=== PATIENT | male | born 1980 | race Two or more races ===

== ENCOUNTER 2020-11-15 16:03 | Emergency (ER) | payer OTHER ==
[~2020-11-15] VITALS: Ht 182.9 cm; Wt 88.5 kg
--- NOTE | 2020-11-15 16:29 | NUR ---
[place] AND [employer] FROM THE STREET TO ER BED 15. AAOX4. NOT IN RESP DISTRESS. BROUGHT IN SUICIDAL IDEATION. PER PT, VOICES ARE TELLING HIM TO HURT HIMSELF AND OTHERS. PT WANT VOLUNTARY BE ADMITTED. PT GOWN, BELONGINGS PLACED IN LOCKER LOCATED IN UTILITY ROOM. SITTER AT BEDSIDE. MD AT BEDSIDE FOR EVAL. ORDERS RECEIVED, NOTED AND CARRIED OUT.
[2020-11-15] MEDS ORDERED: OLANZAPINE 10 MG VIAL IM ONE ×2 (16:30→16:35)
[2020-11-15 16:51] LABS: BASOPHILS # (AUTO) 0.1 /CMM (0.0-0.2); BASOPHILS % (AUTO) 0.8 % (0.0-2.0); EOSINOPHILS % (AUTO) 7.2 % (0.0-6.0); HEMATOCRIT 46 % (39-51); HEMOGLOBIN 15.1 g/dL (13.5-17.5); LYMPHOCYTES % (AUTO) 24.3 % (20.0-44.0); MEAN CORPUSCULAR HGB CONC 33 g/dl (31.0-36.0); MEAN CORPUSCULAR VOLUME 92 fL (80-96); MONOCYTES # (AUTO) 1.1 /CMM (0.1-1.30); MONOCYTES % (AUTO) 12.8 % (2.0-12.0); NEUTROPHILS # (AUTO) 4.6 /CMM (1.8-8.9); NEUTROPHILS % (AUTO) 54.9 % (43.0-81.0); PLATELET COUNT (AUTO) 290 /CMM (150-450); RED BLOOD CELL COUNT(AUTO) 4.98 MIL/uL (4.5-6.0); WHITE BLOOD COUNT (AUTO) 8.3 K/uL (4.3-11.0)
[2020-11-15 16:57] LABS: BILIRUBIN,URINE Negative (NEGATIVE); COLOR,URINE YELLOW (YELLOW); LEUKOCYTE ESTERASE ,URINE Negative (NEGATIVE); NITRITE, URINE Positive (NEGATIVE); PROTEIN,URINE Negative (NEGATIVE); UGLUCOSE Negative (NEGATIVE)
[2020-11-15 17:00] LABS: CALCIUM, SERUM 9.3 mg/dL (8.5-10.1); CARBON DIOXIDE 26 mmol/L (21-32); CHLORIDE 104 mmol/L (98-107); CREATININE 1.1 mg/dL (0.6-1.3); GLUCOSE 94 mg/dL (74-106); SODIUM SERUM 139 mmol/L (136-145); UREA NITROGEN, BLOOD 22 mg/dL (7-18)
[2020-11-15 17:02] LABS: BACTERIA,URINE 2+ /HPF (None Seen); RBC,URINE 0-2 /HPF (0-2); SQUAMOUS EPITHELIAL CELL,UR Few /HPF (None Seen)
[2020-11-15 17:03] LABS: MUCUS,URINE Few /LPF (None Seen); URINE AMORPHOUS PHOSPHATES Few /HPF (None Seen)
[2020-11-15 17:14] LABS: ACETAMINOPHEN < 2 ug/ml (10-30); ALANINE AMINOTRANSFERASE 22 U/L (12-78); ALBUMIN 3.5 g/dL (3.4-5.0); ALCOHOL, BLOOD < 3 mg/dL (0-0); ALKALINE PHOSPHATASE 103 U/L (46-116); ASPARTATE AMINOTRANSFERASE 19 U/L (15-37); BILIRUBIN,DIRECT 0.1 mg/dL (0.0-0.2); BILIRUBIN,TOTAL 0.2 mg/dL (0.2-1.0); TOTAL PROTEIN, SERUM 7.1 g/dL (6.4-8.2)
[2020-11-15] MEDS ORDERED: CEFTRIAXONE 1 G VIAL IM ONE (17:30)
[2020-11-15] MEDS ORDERED: CEFTRIAXONE 1 G VIAL ONE (17:32)
[2020-11-15] MEDS ORDERED: LIDOCAINE /MPF 1% VIAL 5 ML VIAL ONE (17:32)
--- NOTE | 2020-11-15 19:16 | NUR ---
CALL FROM LAB. RAPID COVID NEGATIVE.
--- NOTE | 2020-11-15 21:30 | NUR ---
FACESHEET AND CLINICALS FAXED TO [facility].
--- NOTE | 2020-11-16 06:00 | NUR ---
MEAL TRAY ORDERED
--- NOTE | 2020-11-16 07:35 | NUR ---
ASSUME PT CARE, RESTING IN BED. STABLE VITALS, PT REQUESTED FOR BREAKFAST TRAY.
--- NOTE | 2020-11-16 07:48 | NUR ---
PT AWAKE, STABLE VITALS. PROVIDED W BREAKFAST TRAY.
--- NOTE | 2020-11-16 11:30 | NUR ---
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 Patient is a 40-year-old, male. SW met with patient at his bedside in the emergency department. Patient was alert and oriented x4. Patient was resting. Patient was brought in by ambulance and [employer] on 11/15/20 for suicidal ideation. Per ED staff counselor, clinicals were faxed to [facility] per patients request, for voluntary inpatient psychiatric placement. SW will follow up with this referral. SW assessed patients current suicidal ideation and patient stated that he is currently feeling suicidal and requested inpatient psychiatric placement. Patient denied homicidal ideation. Patient stated that he is currently homeless and has been homeless for the last two years. Patient stated that he is currently receiving food stamps and [employer]. SW assessed patients social support and patient stated that he has no social support. SW assessed patients history of substance use and patient stated that he used amphetamine four days ago and used alcohol and cannabis one week ago. Patient denies current substance use. Per patients toxicology report, patient is positive for amphetamine and cannabinoids. SW asked patient about his history of mental illness and patient stated that he has a history of Schizophrenia. Patient stated that he has a history of auditory hallucinations. Patient stated that he was not experiencing hallucinations during the interview. Patient is not currently taking psychiatric medication but asked SW if medication could be requested by ED physician. SW will follow up with ED physician. SW offered homeless and substance use resources to the patient. Patient accepted the resources and thanked SW. Patient signed the homeless waiver and filed it in the patients chart. Patient agreed voluntarily to inpatient psychiatric placement, if accepted. PLAN: Patient agreed voluntarily to inpatient psychiatric placement, if accepted. No further SS intervention, however, SW will remain available as needed. Year-round shelters: [facility] [place] [address] [place] [address] ; [facility] [place] [address] [place] [address]; [place] [facility] [id number] [facility]. [facility] [address] SPA 4 | [facility] [place] Provider: First to Serve Address: [address] [place] [address] # of Beds: 48 Population Served: [facility] Provider: First to Serve Address: [address] [facility], [address] # of Beds: 73 Population Served: Co[facility] SPA 6 | [facility] Provider: [facility] Address: [address] [facility] [facility], [address] # of Beds: 63 Population Served: Co[facility] SPA 3 | [facility] Provider: [facility] [place] Address: [address] [facility], [address] # of Beds: 75 Population Served: [facility] SPA 8 | [facility] Provider: [facility] [place] Address: [address] [facility], [address] # of Beds: 80 Population Served: [facility] 1 | [facility] Provider: [facility] [place] Address: [id number] [place] [address], [address] # of Beds: 85 Population Served: [facility] 2 | [facility] Provider: [facility] Address: Confidential (please call for location) # of Beds: 52 Population Served: [facility] 4 | [facility] Provider: [facility] Address: [address] [facility], [address] # of Beds: 49 Population Served: [facility] Provider: First To Serve Address: [address] [place] [address], [address] # of Beds: 27 Population Served: [facility] Hygiene: [facility]: [address] [address] ; [place] [facility] [address] [facility] ; [facility] [address] . Food Resources: [place] [employer] [facility] at [facility]- [address] [place]; Meet Each Need with [facility] ([facility]) [address] [facility]; [facility] [address] [facility]; [facility] [address] stefany Hernandez. Mental Health resources provided: [facility] [address] [place] [address] ; [facility] [address] [facility] [address], [place], [place] [phone] ; [facility] [address] [facility] [place], [place] [phone] ; [facility] [address] [place], [place] [phone] Healthcare Clinics: [facility] [address] [facility], [address] [place]. [place] ; [facility] [address] [facility] [facility] [address] [place] [address]; [facility] [address] [place]. [place] [phone] Counseling--Outpatient [facility] [address] [facility] [facility], [place] [address] (Specializes in in-depth psychotherapy for emotional distress: anxiety, depression, interpersonal conflicts, life transitions, childhood abuse) PSYCHIATRIC OUTPATIENT SERVICES [facility] Partial Hospitalization and Intensive Outpatient Program (Managed Care and [place] Only) [address] [facility] [phone] [facility] Partial Hospitalization and Outpatient Program [address] [place], [place] [phone] [facility] Partial Hospitalization and Outpatient Program [address] [facility]. [place], [place] [id number] [facility] [address] [facility] [place], [place] [id number] [facility] Partial Hospitalization and Outpatient Program [address] [place], [place] [phone] Substance use resources provided included: [facility] Substance Abuse Self-Helpline (SAS) ; [facility] [address] [facility] [address]101 ; [facility] [address] [facility] [address] ; [facility] [address] [facility] [phone] ; [facility] [address] [facility] [address] ; [facility] [address] [facility] [address] [facility] [phone] ; [facility] [place]; [facility] [place]; [facility] He[place]; Alcoholics Anonymous -SFV"
--- NOTE | 2020-11-16 13:12 | NUR ---
PT VERBALIZED THAT HE IS NO LONGER SUICIDAL AND WANTS TO LEAVE. PT WAS SEEN BY TENTERER. PROVIDED WITH FOOD AND PROVIDED AITH A BUS PASS PER PT REQUEST. ALL BELONGINGS WERE RETURED TO PT.
--- NOTE | 2020-11-16 13:12 | NUR ---
PT VERBALIZED THAT HE IS NO LONGER SUICIDAL AND WANTS TO LEAVE. MADE AWARE OK FOR DISCAHRGE. PT WAS SEEN BY MANUFACTURING ENGINEERING PROFESSOR. PROVIDED WITH FOOD AND PROVIDED WITH A BUS PASS PER PT REQUEST. ALL BELONGINGS WERE RETURED TO PT.
--- NOTE | 2020-11-16 13:12 | NUR ---
PT VERBALIZED THAT HE IS NO LONGER SUICIDAL NOR HOMICIDAL AND WANTS TO LEAVE. HE VERBALIZED THAT HE FEELS BETTER. MADE AWARE OK FOR DISCAHRGE. PT WAS SEEN BY IN HOME CAREGIVER. PROVIDED WITH FOOD AND PROVIDED WITH A BUS PASS PER PT REQUEST. ALL BELONGINGS WERE RETURED TO PT.
--- NOTE | 2020-11-16 13:14 | NUR ---
Patient discharged to home in stable condition. Written and verbal after care instructions given. Patient verbalizes understanding of instruction. Pt ambulatory with a steady gait
[2020-11-16 13:22] VITALS: BP 104/71
== END 2020-11-16 13:22 | disposition home or self-care (01) ==
LOC: ER 16:08
DX: F29 Unspecified psychosis not due to a substance or known physiological condition (principal); R45.851 Suicidal ideations; R45.850 Homicidal ideations; F15.10 Other stimulant abuse, uncomplicated; Z20.822 Contact with and (suspected) exposure to COVID-19; N39.0 Urinary tract infection, site not specified; Z91.14 Patient's other noncompliance with medication regimen
CPT/HCPCS: 36415; 80048; 80076; 80143; 80307; 80320; 81001; 85025; 87086; 87426; 96372 ×2; 99285; C9803; J0696; J3490 ×2; G0480

== ENCOUNTER 2021-07-31 11:04 | Emergency (ER) | payer OTHER ==
[~2021-07-31] VITALS: Ht 180.3 cm; Wt 73.9 kg
[2021-07-31 11:20] VITALS: BP 134/88
--- NOTE | 2021-07-31 11:42 | NUR ---
COVID SWAB DONE AND SENT TO LAB
--- NOTE | 2021-07-31 11:42 | NUR ---
URINE COLLECTED AND SENT TO LAB
[2021-07-31 12:13] LABS: BASOPHILS # (AUTO) 0.1 K/uL (0.0-0.2); BASOPHILS % (AUTO) 0.4 % (0.0-2.0); EOSINOPHILS % (AUTO) 2.7 % (0.0-6.0); HEMATOCRIT 43 % (39-51); HEMOGLOBIN 13.9 g/dL (13.5-17.5); LYMPHOCYTES # (AUTO) 1.5 K/uL (0.8-4.8); LYMPHOCYTES % (AUTO) 11.8 % (20.0-44.0); MEAN CORPUSCULAR HGB CONC 33 g/dl (31.0-36.0); MEAN CORPUSCULAR VOLUME 90 fL (80-96); MONOCYTES # (AUTO) 0.7 K/uL (0.1-1.30); MONOCYTES % (AUTO) 5.8 % (2.0-12.0); NEUTROPHILS # (AUTO) 10.1 K/uL (1.8-8.9); NEUTROPHILS % (AUTO) 79.3 % (43.0-81.0); PLATELET COUNT (AUTO) 279 K/uL (150-450); RED BLOOD CELL COUNT(AUTO) 4.74 MIL/uL (4.5-6.0); WHITE BLOOD COUNT (AUTO) 12.7 K/uL (4.3-11.0)
[2021-07-31 12:14] LABS: BILIRUBIN,URINE NEGATIVE (NEGATIVE); COLOR,URINE YELLOW (YELLOW); LEUKOCYTE ESTERASE ,URINE NEGATIVE (NEGATIVE); NITRITE, URINE NEGATIVE (NEGATIVE); PROTEIN,URINE NEGATIVE (NEGATIVE); UGLUCOSE NEGATIVE (NEGATIVE); UROBILINOGEN,URINE 0.2 EU/dL (0.2)
[2021-07-31 12:44] LABS: ALANINE AMINOTRANSFERASE 83 U/L (12-78); ALBUMIN 3.6 g/dL (3.4-5.0); ALKALINE PHOSPHATASE 104 U/L (46-116); ASPARTATE AMINOTRANSFERASE 66 U/L (15-37); BILIRUBIN,DIRECT 0.1 mg/dL (0.0-0.2); BILIRUBIN,TOTAL 0.1 mg/dL (0.2-1.0); CARBON DIOXIDE 28 mmol/L (21-32); CHLORIDE 105 mmol/L (98-107); GLUCOSE 99 mg/dL (74-106); POTASSIUM 4.1 mmol/L (3.5-5.1); SODIUM SERUM 141 mmol/L (136-145); TOTAL PROTEIN, SERUM 7.4 g/dL (6.4-8.2); UREA NITROGEN, BLOOD 26 mg/dL (7-18)
[2021-07-31 12:45] LABS: ACETAMINOPHEN 0 ug/ml (10-30); ALCOHOL, BLOOD < 3 mg/dL (0-0)
[2021-07-31] MEDS: QUETIAPINE FUMARATE 100 MG TABLET PO SCH ×2 (13:00→17:00)
[2021-07-31 13:10] LABS: BACTERIA,URINE None seen /HPF (None Seen)
[2021-07-31 13:11] LABS: SQUAMOUS EPITHELIAL CELL,UR None Seen /HPF (None Seen)
[2021-07-31 13:12] LABS: MUCUS,URINE None Seen /LPF (None Seen)
[2021-07-31] MEDS ORDERED: QUETIAPINE FUMARATE 100 MG TABLET ONE (14:33)
--- NOTE | 2021-07-31 19:35 | NUR ---
DID PT ROUNDING BUT PT WAS NO WHERE TO BE SEEN IN THE ER. PER LAST MEDICINE TRANSACTION @[phone], NOTE "ABSENT IN DEPT". PT HAVE ELOPED.
--- NOTE | 2021-07-31 19:36 | NUR ---
UNABLE TO DEPART PT ON [employer] D/T ASKING FOR "IMPRESSIONS"
== END 2021-07-31 19:35 | disposition left against medical advice (07) ==
LOC: ER 11:11
DX: R45.851 Suicidal ideations (principal); F20.9 Schizophrenia, unspecified; R45.850 Homicidal ideations; F17.200 Nicotine dependence, unspecified, uncomplicated; Z20.822 Contact with and (suspected) exposure to COVID-19; Z53.20 Procedure and treatment not carried out because of patient's decision for unspecified reasons
CPT/HCPCS: 36415; 80048; 80076; 80143; 80307; 80320; 81001; 85025; 87426; 99285; C9803; G0480